=== PATIENT | female | born 1965 | race Caucasian/White ===

== ENCOUNTER → 2016-05-31 | Outpatient (CLI) | payer OTHER ==
--- NOTE | 2016-06-01 10:06 | MM ---
Reason for exam: screening (asymptomatic). Last mammogram was performed 2 years and 4 months ago. History: Taking hormonal contraceptives for 10 years beginning at age 33. Physical Findings: A clinical breast exam by your physician is recommended on an annual basis and results should be correlated with mammographic findings. MG Screening Mammo w CAD Bilateral CC and MLO view(s) were taken. Prior study comparison: January 20, 2014, bilateral MG screening mammo w CAD. December 10, 2012, bilateral digital screening mammo w/CAD. There are scattered fibroglandular densities. Finding: There are grouped/clustered calcifications in both breasts. Increase in number of calcifications since January 20, 2014 and December 10, 2012. ASSESSMENT: Incomplete: need additional imaging evaluation, BI-RAD 0 RECOMMENDATION: Special view mammogram of the left breast. [facility] will attempt to contact patient to return for supplemental views.
== END | disposition home or self-care (01) ==
LOC: RADMAMWWP 10:58
PROVIDERS: ATTEND Obstetrics & Gynecology
DX: Z12.31 Encounter for screening mammogram for malignant neoplasm of breast (principal)

== ENCOUNTER → 2016-06-05 | Outpatient (CLI) | payer OTHER ==
--- NOTE | 2016-06-05 14:53 | MM ---
Reason for exam: additional evaluation requested from abnormal screening. Last mammogram was performed less than 1 month ago. History: Taking hormonal contraceptives for 10 years beginning at age 33. Physical Findings: Nurse did not find any significant physical abnormalities on exam. MG Work Up Mamm w CAD LT ML, CC with magnification, and ML with magnification view(s) were taken of the left breast. Prior study comparison: January 20, 2014, bilateral MG screening mammo w CAD. Finding: There are typically benign diffuse/scattered calcifications in the subareolar position of the left breast. These results were verbally communicated with the patient and result sheet given to the patient on 06/05/16. ASSESSMENT: Probably benign, BI-RAD 3 RECOMMENDATION: Follow-up diagnostic mammogram of the left breast in 6 months.
== END | disposition home or self-care (01) ==
LOC: RADMAMWWP 13:53
PROVIDERS: ATTEND Obstetrics & Gynecology
DX: R92.8 Other abnormal and inconclusive findings on diagnostic imaging of breast (principal)

== ENCOUNTER → 2016-12-12 | Outpatient (CLI) | payer OTHER ==
--- NOTE | 2016-12-12 14:14 | MM ---
Reason for exam: follow-up at short interval from prior study. Last mammogram was performed 6 months ago. History: Taking hormonal contraceptives for 10 years beginning at age 33. Physical Findings: Nurse did not find any significant physical abnormalities on exam. MG 3D Diag Mammo W/Cad LT CC, MLO, and spot compression MLO view(s) were taken of the left breast. Prior study comparison: June 05, 2016, left breast MG work up mamm w CAD LT. May 31, 2016, bilateral MG screening mammo w CAD. There are scattered fibroglandular densities. Finding: There are typically benign round calcifications in the left breast. There is no discrete abnormality persists on today's study. These results were verbally communicated with the patient and result sheet given to the patient on 12/12/16. ASSESSMENT: Benign, BI-RAD 2 RECOMMENDATION: Return to routine screening mammogram schedule for both breasts. Back on schedule.
== END ==
LOC: RADMAMWWP 13:12
PROVIDERS: ATTEND Obstetrics & Gynecology
DX: R92.8 Other abnormal and inconclusive findings on diagnostic imaging of breast (principal)
CPT/HCPCS: G0206; G0279

== ENCOUNTER → 2017-06-03 | Outpatient (CLI) | payer OTHER ==
--- NOTE | 2017-06-04 13:51 | MM ---
Reason for exam: screening (asymptomatic). Last mammogram was performed 6 months ago. History: Taking hormonal contraceptives for 10 years beginning at age 33. Physical Findings: A clinical breast exam by your physician is recommended on an annual basis and results should be correlated with mammographic findings. MG 3D Screening Mammo W/Cad Bilateral CC and MLO view(s) were taken. Prior study comparison: December 12, 2016, left breast MG 3d diag mammo w/cad LT. June 05, 2016, left breast MG work up mamm w CAD LT. There are scattered fibroglandular densities. Finding: There are typically benign round calcifications in both breasts. There is no discrete abnormality. ASSESSMENT: Benign, BI-RAD 2 RECOMMENDATION: Routine screening mammogram of both breasts in 1 year.
== END | disposition home or self-care (01) ==
LOC: RADMAMWWP 07:55
PROVIDERS: ATTEND Obstetrics & Gynecology
DX: Z12.31 Encounter for screening mammogram for malignant neoplasm of breast (principal)
CPT/HCPCS: 77063; 77067

== ENCOUNTER → 2018-07-15 | Outpatient (CLI) | payer OTHER ==
--- NOTE | 2018-07-16 12:25 | MM ---
Reason for exam: screening (asymptomatic). Last mammogram was performed 1 year and 1 month ago. History: Took hormonal contraceptives for 10 years beginning at age 33. Physical Findings: A clinical breast exam by your physician is recommended on an annual basis and results should be correlated with mammographic findings. MG 3D Screening Mammo W/Cad Bilateral CC and MLO view(s) were taken. Prior study comparison: June 03, 2017, bilateral MG 3d screening mammo w/cad. December 12, 2016, left breast MG 3d diag mammo w/cad LT. The breast tissue is heterogeneously dense. This may lower the sensitivity of mammography. Stable benign calcifications. There is no discrete abnormality. No significant changes when compared with prior studies. ASSESSMENT: Benign, BI-RAD 2 RECOMMENDATION: Routine screening mammogram of both breasts in 1 year.
== END ==
LOC: RADMAMWWP 13:46
PROVIDERS: ATTEND Obstetrics & Gynecology
DX: Z12.31 Encounter for screening mammogram for malignant neoplasm of breast (principal)
CPT/HCPCS: 77063; 77067

== ENCOUNTER → 2019-09-07 | Outpatient (CLI) | payer OTHER ==
--- NOTE | 2019-09-08 09:14 | MM ---
Reason for exam: screening (asymptomatic). Last mammogram was performed 1 year and 2 months ago. History: Took hormonal contraceptives for 10 years beginning at age 33. Physical Findings: A clinical breast exam by your physician is recommended on an annual basis and results should be correlated with mammographic findings. MG 3D Screening Mammo W/Cad Bilateral CC and MLO view(s) were taken. Prior study comparison: July 15, 2018, bilateral MG 3d screening mammo w/cad. June 03, 2017, bilateral MG 3d screening mammo w/cad. The breast tissue is heterogeneously dense. This may lower the sensitivity of mammography. There is no discrete abnormality. No significant changes when compared with prior studies. ASSESSMENT: Negative, BI-RAD 1 RECOMMENDATION: Routine screening mammogram of both breasts in 1 year.
== END | disposition home or self-care (01) ==
LOC: RADMAMWWP 15:22
PROVIDERS: ATTEND Obstetrics & Gynecology
DX: Z12.31 Encounter for screening mammogram for malignant neoplasm of breast (principal)
CPT/HCPCS: 77063; 77067

== ENCOUNTER → 2019-09-08 | Outpatient (CLI) | payer OTHER ==
--- NOTE | 2019-09-09 17:21 | MR ---
EXAMINATION TYPE: MR knee LT wo con DATE OF EXAM: 09/08/2019 COMPARISON: NONE HISTORY: Pain in left knee per order. Pain and swelling with locking for 2 to 3 years with history of prior surgery per patient. TECHNIQUE: Multiplanar, multisequence images of the knee is performed without IV contrast. FINDINGS: MEDIAL MENISCUS: Medial extrusion medial meniscus. Anterior horn is intact without tear. Slightly heather ncated posterior horn with increased signal sagittal image 28. LATERAL MENISCUS: Anterior and posterior horns are intact without tear. CRUCIATE LIGAMENTS: The anterior and posterior cruciate ligaments are intact and unremarkable. COLLATERAL LIGAMENTS: The medial collateral ligament and lateral collateral ligament complex are inta ct and unremarkable. EXTENSOR MECHANISM: Visualized quadriceps and patellar tendons are intact. EFFUSION: There is moderate size suprapatellar joint effusion with suggestion of synovitis. POPLITEAL CYST: No popliteal/sifuentes cyst. TRICOMPARTMENT SPACES: Moderate to severe tricompartmental joint space narrowing and spurring. CARTILAGE: Some chondromalacia patella with fissuring of cartilage along the posterior patellar pole. Full-thickness cartilaginous loss medial tibiofemoral compartment. BONE MARROW SIGNAL: There is a heterogeneous diminished T1 and increased T2 signal medial tibial femo ral compartment at sites of full thickness cartilaginous loss. OTHER: No additional significant abnormality is appreciated. IMPRESSION: 1. Underlying fairly advanced tricompartment degenerative changes as detailed above somewhat pronounc ed for patient's and chronologic age. 2. Moderate suprapatellar joint effusion with suggestion of synovitis. 3. Tear versus postsurgical change posterior horn of medial meniscus, correlate clinically.
== END | disposition home or self-care (01) ==
LOC: RADMRIMAIN 16:00
PROVIDERS: ATTEND Family Medicine
DX: M17.12 Unilateral primary osteoarthritis, left knee (principal); M25.462 Effusion, left knee

== ENCOUNTER 2019-10-06 06:51 | Day surgery (SDC) | payer OTHER ==
[2019-09-16 16:03] VITALS: BMI 36.6
[~2019-10-06 06:51] MED LIST: LACTATED RINGERS 1,000 ML IV SCH; LIDOCAINE 1% (10MG/ML) FOR IV START INTRADERMA PRN
[2019-10-06 07:12] VITALS: TEMP 97
[2019-10-06 07:19] LABS: Glucose,Whole Blood 148 mg/dL (75-99)
[2019-10-06] MEDS ORDERED: MIDAZOLAM 2 MG/2 ML VIAL ONE (07:29)
[2019-10-06] MEDS ORDERED: LIDOCAINE 1% INJ 10MG/ML (20 ML MDV) ONE (07:29)
[2019-10-06] MEDS ORDERED: PROPOFOL 10 MG/ML 20 ML VIAL IV ONE (07:29)
--- NOTE | 2019-10-06 08:18 | P.PCN ---
Date of Procedure: 10/06/19 Description of Procedure: BRIEF HISTORY: Patient is a 54-year-old female presenting for outpatient colonoscopy for screening for malignant neoplasm of the colon. No prior colonoscopy. No family history of colon cancer. No change in bowel habits, blood per rectum or abdominal pain. PROCEDURE PERFORMED: Colonoscopy with polypectomy. PREOPERATIVE DIAGNOSIS: Screening for malignant neoplasm of the colon, no prior colonoscopy. ESTIMATED BLOOD LOSS: Minimal. IV sedation per Anesthesia. PROCEDURE: After informed consent was obtained, the patient, was brought into the endoscopy unit. IV sedation was administered by Anesthesia under continuous monitoring. Digital rectal examination was normal. Initially the Olympus CF-190 flexible video colonoscope was then inserted in the rectum, gradually advanced into the cecum without any difficulty. Careful examination was performed as the scope was gradually being withdrawn. Ileocecal valve and the appendiceal orifice were visualized and appeared normal. Prep was excellent. Mucosa of the cecum, ascending colon, transverse colon, descending colon, sigmoid colon, and rectum appeared normal. Diminutive polyps measuring 1-2 mm in size removed with cold forcep polypectomy, one from the transverse colon, one from the hepatic flexure, one from the descending colon, and 2 from the sigmoid colon. Flat cecal polyp measuring 9 mm in size removed with cold snare polypectomy. Flat ascending colon polyp measuring 10 mm in size removed from the ascending colon with cold snare polypectomy. Retroflexion was performed in the rectum and no lesions were seen. The patient tolerated the procedure well. IMPRESSION: 5 diminutive polyps removed with cold forcep polypectomy from the transverse colon, hepatic flexure, descending colon and sigmoid colon. 9 mm cecal polyp removed with cold snare polypectomy. 10 mm ascending polyp removed with cold snare polypectomy. RECOMMENDATIONS: Findings of this examination were discussed with the patient. Okay to resume diet. Okay to resume medications. await pathology from polypectomies. Recommend repeat colonoscopy in 3 years for high-risk colon polyps pending pathology from polypectomies.
[2019-10-06 08:35] VITALS: BP 127/84; PULSE 53; RESP 16
== END 2019-10-06 09:02 | disposition home or self-care (01) ==
LOC: ORWHC2ENDO 06:51
PROVIDERS: ATTEND Internal Medicine
DX: Z12.11 Encounter for screening for malignant neoplasm of colon (principal); D12.0 Benign neoplasm of cecum; D12.2 Benign neoplasm of ascending colon; D12.3 Benign neoplasm of transverse colon; K63.5 Polyp of colon; I10 Essential (primary) hypertension; E11.9 Type 2 diabetes mellitus without complications; M19.90 Unspecified osteoarthritis, unspecified site; F17.200 Nicotine dependence, unspecified, uncomplicated; Z91.040 Latex allergy status; Z79.84 Long term (current) use of oral hypoglycemic drugs; Z79.3 Long term (current) use of hormonal contraceptives; Z79.899 Other long term (current) drug therapy; Z98.890 Other specified postprocedural states
CPT/HCPCS: 45380; 45385; 81025; 88305; J2250; J2001; J2704

== ENCOUNTER → 2019-12-24 | Outpatient (CLI) | payer OTHER ==
[2019-12-24 15:36] LABS: HCT 41.1 % (34.0-46.0); HGB 13.5 gm/dL (11.4-16.0); MCH 32.8 pg (25.0-35.0); MCHC 32.8 g/dL (31.0-37.0); Mean Platelet Volume 9.4; Platelet Count 158 k/uL (150-450); RBC 4.11 m/uL (3.80-5.40); RDW 13.4 % (11.5-15.5); WBC 9.2 k/uL (3.8-10.6)
[2019-12-24 15:37] LABS: Appearance,Urine Clear (Clear); Bilirubin,Urine Negative (Negative); Blood,Urine Negative (Negative); Color,Urine Light Yellow; Glucose,Urine (UA) 4+ (Negative); Ketones,Urine Negative (Negative); Leukocyte Esterase,Urine Negative (Negative); Nitrite,Urine Negative (Negative); Protein,Urine Negative (Negative); Specific Gravity,Urine 1.025 (1.001-1.035); Urobilinogen,Urine <2.0 mg/dL (<2.0)
[2019-12-24 15:43] LABS: ALT 12 U/L (4-34); AST 20 U/L (14-36); African American GFR (CKD) >90 (>60 ml/min/1.73 sqM); Alkaline Phosphatase 123 U/L (38-126); Anion Gap 8 mmol/L; Blood Urea Nitrogen 21 mg/dL (7-17); Calcium 9.5 mg/dL (8.4-10.2); Carbon Dioxide 29 mmol/L (22-30); Chloride 100 mmol/L (98-107); Glucose 113 mg/dL (74-99); Non-African American GFR(CKD) 82 (>60 ml/min/1.73 sqM); Potassium 4.6 mmol/L (3.5-5.1); Sodium 137 mmol/L (137-145); Total Bilirubin 0.4 mg/dL (0.2-1.3); Total Protein 6.8 g/dL (6.3-8.2)
[2019-12-24 16:50] LABS: Partial Thromboplastin Time 24.9 sec (22.0-30.0)
== END | disposition home or self-care (01) ==
LOC: LABPAT 13:44
PROVIDERS: ATTEND Orthopaedic Surgery
DX: Z01.818 Encounter for other preprocedural examination (principal); Z01.812 Encounter for preprocedural laboratory examination; M17.12 Unilateral primary osteoarthritis, left knee
CPT/HCPCS: 80053; 81003; 85027; 85610; 85730; 87070

== ENCOUNTER 2020-01-05 09:46 | Day surgery (SDC) | payer OTHER ==
[2020-01-01 09:33] VITALS: BMI 36.3
[~2020-01-05 09:46] MED LIST changes: +ACETAMINOPHEN TAB 500 MG TAB PO ONE; +DEXAMETHASONE SOD PHOSPHATE 10 MG/ML 1 ML VIAL IV ONE; +GABAPENTIN 300 MG CAP PO ONE; +HYDROmorphone 0.5 MG/0.5 ML SYRINGE IVP PRN; -LACTATED RINGERS 1,000 ML IV SCH; +MELOXICAM 7.5 MG TAB PO ONE; +MIDAZOLAM 2 MG/2 ML VIAL IV PRN; +ONDANSETRON 4 MG/2 ML VIAL IVP ONE; +TRANEXAMIC ACID 1,000 MG in SODIUM CHLORIDE 0.9% 100 ML IVPB ONE
[2020-01-05 10:30] LABS: Glucose,Whole Blood 142 mg/dL (75-99)
[2020-01-05] MEDS: LACTATED RINGERS 1,000 ML IV SCH (10:52)
[2020-01-05] MEDS ORDERED: fentaNYL (PF) 50 MCG/ML 2 ML AMP IV ONE (10:59)
[2020-01-05] MEDS ORDERED: MIDAZOLAM 2 MG/2 ML VIAL ONE (11:13)
[2020-01-05] MEDS ORDERED: fentaNYL (PF) 50 MCG/ML 2 ML AMP ONE (11:13)
[2020-01-05] MEDS ORDERED: TRANEXAMIC ACID 1,000 MG/10 ML VIAL ONE (11:13)
[2020-01-05] MEDS ORDERED: PROPOFOL 10 MG/ML 20 ML VIAL IV ONE (11:13)
[2020-01-05] MEDS ORDERED: SODIUM CHLORIDE 0.9% 100 ML BAG ONE (11:13)
[2020-01-05] MEDS ORDERED: diphenhydrAMINE 50 MG/ML 1 ML VIAL ONE (11:13)
[2020-01-05] MEDS ORDERED: ceFAZolin 3,000 MG in SODIUM CHLORIDE 0.9% IRRIGATIO 3,000 ML IRRIGATION ONE (11:18)
[2020-01-05] MEDS ORDERED: diazePAM 5 MG TAB PO PRN (11:21)
[2020-01-05] MEDS ORDERED: NALOXONE 0.4 MG/ML 1 ML VIAL IV PRN (11:21)
[2020-01-05] MEDS ORDERED: MAGNESIUM HYDROXIDE 2,400 MG/10 ML CUP PO PRN (11:21)
[2020-01-05] MEDS ORDERED: NA PHOS,M-B/NA PHOS,DI-BA 133 ML ENEMA RECTAL PRN (11:21)
[2020-01-05] MEDS ORDERED: ONDANSETRON 4 MG/2 ML VIAL IVP PRN (11:21)
[2020-01-05] MEDS ORDERED: HYDROmorphone 0.5 MG/0.5 ML SYRINGE IVP PRN ×2 (11:21)
[2020-01-05] MEDS ORDERED: HYDROcodone/APAP 5-325MG 1 EACH TAB PO PRN (11:21)
[2020-01-05] MEDS ORDERED: hydrOXYzine pamoate 25 MG CAP PO PRN (11:21)
[2020-01-05] MEDS ORDERED: bisacodyL 10 MG SUPP RECTAL PRN (11:21)
[2020-01-05] MEDS ORDERED: HYDROmorphone 1 MG/ML 1 ML SYRINGE IVP PRN (11:21)
[2020-01-05] MEDS: ROPIVACAINE 246.25 MG, EPINEPHrine 0.5 MG, KETOROLAC 30 MG, cloNIDine HCL/PF 80 MCG, WA... MISCELLANE ONE ×10 (11:39→12:23)
[2020-01-05] MEDS ORDERED: ROPIVACAINE 0.2%-NS ON-Q PUMP 1,090 MG, EMPTY PAIN BALL 1 EACH MISCELLANE PRN (11:57)
--- NOTE | 2020-01-05 11:57 | P.ANPRN ---
Procedure Note - Anesthesia - Nerve Block Performed Left Adductor Canal Infusion Time Out Performed: Yes (1056) Date of Procedure: 01/05/20 Procedure Start Time: 10:57 Procedure Stop Time: 11:10 Location of Patient: PreOp Indication: Acute Post-Operative Pain, Analgesia, Requested by Surgeon Specifically requested for management of pain by : Rick Devries Sedation Type: Sedate with meaningful contact maintained Preparation: Sterile Prep, Sterile Dressing Position: Supine Catheter: Indwelling Needle Types: Dayna Needle Gauge: 18 Ultrasound used to visualize needle placement: Yes Ultrasound used to observe medication spread: Yes Injectate: 0.5% Ropivacaine (see comment for volume) (20 mL) Blood Aspirated: No Pain Paresthesia on Injection Noted: No Resistance on Injection: Normal Image Stored and Saved: Yes Events: Uneventful and Well Tolerated
[2020-01-05] MEDS ORDERED: LACTATED RINGERS 1,000 ML IV ONE (12:22)
--- NOTE | 2020-01-05 12:29 | P.OP ---
Date of Procedure: 01/05/20 Preoperative Diagnosis: severe osteoarthritis left knee Postoperative Diagnosis: severe osteoarthritis left knee Procedure(s) Performed: left total knee arthroplasty utilizing [employer] patient specific guides Implants: Matt [employer]hew Cruciate Retaining Journey II CR Oxinium Femoral Component size 6, left Matt [employer]hew Journey Nonporous Tibial Baseplate size 5, left [employer]hew Journey II Deep Dished, XLPE Articular Insert, 9 mm, size 5-6 Matt [employer] Nephew Parul II Resurfacing Patellar Component, Oval, 29 mm All components were cemented using Palacose R bone cement. [employer] patient specific guides The articulation is Oxinium on polyethylene. Anesthesia: spinal Surgeon: Rick Devries Molding Associate #1: Mery Sarmiento Estimated Blood Loss (ml): 25 Pathology: other (bone and cartilage) Condition: stable Disposition: PACU Indications for Procedure: After failure of conservative treatment we discussed the surgical and nonsurgical treatment options at length. Patient wishes to proceed with a total knee arthroplasty. Complications specific to this procedure were discussed at length, including but not limited to infection, bleeding, stiffness, and nerve injury. Covid-19 was also discussed at length with the patient, and they are aware of the current policies and procedures. The patient was given the option of delaying surgery, but they elect to proceed knowing these risks. Patient is aware of all these complications and informed consent was obtained Operative Findings: the operative findings are consistent with severe osteoarthritis of the left knee Description of Procedure: Patient was seen in the preoperative area consent was reviewed and operative site was marked with a skin marker. An adductor canal pain catheter was placed by anesthesia in the preoperative area. Patient was then brought to the operating room and given preoperative antibiotics intravenously. A spinal anesthetic was administered by the anesthesia department. A tourniquet was placed on the upper thigh and the lower extremity was prepped and draped in usual sterile fashion. A gram of transexamic acid was given. A universal timeout was then performed which confirmed the patient's name, surgical site, ALLERGIES, and consent. The lower extremity was then exsanguinated and tourniquet was inflated to 250 mmHg. A standard and anterior midline approach to the knee was performed. The skin and subcutaneous tissue was dissected down to the patellar tendon. A medial parapatellar arthrotomy was then performed. The knee was then extended, the patellar was everted, and the knee was again flexed. Anterior horns of both menisci were excised, and a release was performed to the posterior medial aspect of the knee. On gross visual inspection, there was complete loss of articular cartilage in the medial and patellofemoral joint spaces. There was also significant cartilage damage in the lateral compartment. There were multiple periarticular osteophytes. The patient specific guide was placed on the distal femur, and pinned in place. Using the patient specific guide, the distal femoral cut was performed. The cutting block was then removed and the cut was checked for flatness. The appropriate 5-in-1 cutting block was then pinned in place through the holes that were drilled through the patient specific guide. The anterior condyles were cut without notching. The posterior and chamfer cuts were performed while protecting the collateral ligaments. The cutting block was then removed. Attention was then directed to the tibia. The remaining ACL was removed with a Ronguer, and the tibia was then gently subluxed forward with a large bent knee retractor. Any remaining menisci was excised. The posterior lateral corner was cauterized in order to cauterize the lateral geniculate artery. The patient specific guide for the tibia was then placed and was held in place with pins. Pinholes were then placed for rotation of the tibial component as well. Proximal tibia was then cut and sized. Next trials were then placed with the appropriate-sized insert. The knee was able to fully extend and flex to 130 and was stable throughout all range of motion. The knee was then extended, patella everted. Patella was then measured, and then using an osteotomy guide, the patella was cut at the appropriate level. The patella was then measured and drilled and the patella trial was then placed. The knee was then taken through range of motion with the patella trial and the patella tracked normally. The knee was then extended patella trial was then removed and the patella was everted. Knee was then flexed and lug holes were drilled through the femoral trial and the femoral trial was then removed. The tibial was then exposed, and the tibial broach guide was then pinned in place after it was set for the appropriate rotation to allow for the most coverage without overhang. The tibia was then reamed and broached. The cut surfaces of bone were then irrigated with pulsatile lavage. The posterior structures were injected with the ropivacaine solution. The knee was also irrigated with Irrisept solution. The components were then opened, the cement was mixed, and the components were then cemented in place. The cement was allowed to harden with the knee in full extension. While the cement was hardening, the remaining soft tissues were then injected with a ropivacaine solution, which consisted of 246.25 mg of ropivacaine, 0.5 mg of epinephrine, 30 mg of Toradol, 80 g of clonidine, and 48.45 mL of sterile water, for a total of 100 mL of fluid injected. After the cemented hardened. The tourniquet was released, and hemostasis was obtained. A second gram of transexamic acid was given. The knee was again irrigated. The knee was again taken through range of motion and found to be stable throughout all range of motion of 0-130, and the patella tracked normally. The fascia was then closed with #2 strata fix suture. The subcutaneous tissue was closed with 3-0 Vicryl and 3-0 strata fix. Dermabond glue was used for the skin and placed with the knee in flexion. The patient was placed in a sterile silver dressing. Patient was then transferred to recovery room in stable condition. The assistant construction superintendent DONYA Miramontes was required due the complexity surgery and the need for a skilled surgical aide. She assisted in positioning, draping, retraction, and closure of the wound.
[2020-01-05 13:22] LABS: Glucose,Whole Blood 147 mg/dL (75-99)
--- NOTE | 2020-01-05 13:44 | XR ---
EXAMINATION TYPE: XR knee limited LT DATE OF EXAM: 01/05/2020 CLINICAL HISTORY: Left knee pain and arthritis status post total knee replacement. TECHNIQUE: Portable AP and crosstable lateral views of the left knee are obtained immediately postop eratively. COMPARISON: None FINDINGS: Metallic hardware from total left knee arthroplasty is seen and appears satisfactory in al ignment and position. There is evidence of recent surgery with diffuse subcutaneous gas and soft tis reynold swelling noted. IMPRESSION: METALLIC HARDWARE FROM TOTAL LEFT KNEE ARTHROPLASTY IS SATISFACTORY IN ALIGNMENT.
[2020-01-05] MEDS ORDERED: diphenhydrAMINE 50 MG/ML 1 ML VIAL IVP ONE (15:16)
[2020-01-05 15:53] VITALS: RESP 18
[2020-01-05] MEDS: SODIUM CHLORIDE 0.9% 1,000 ML IV SCH (16:32)
--- NOTE | 2020-01-05 17:26 | P.CONS ---
History of Present Illness - Reason for Consult Hypertension, type 2 diabetes mellitus - History of Present Illness Patient is a pleasant 54-year-old the female was admitted for left knee arthroplasty underwent surgery patient denied any pain did pass gas. Patient is diabetic does have high blood pressure. Patient denied any fever chills nausea vomiting abdominal pain dysuria. Patient doesn't have a Cote catheter At this time. Doesn't have surgical drainage at this time Review of Systems REVIEW OF SYSTEMS: CONSTITUTIONAL: No fever, no malaise, no fatigue. HEENT: No recent visual problems or hearing problems. Denied any sore throat. CARDIOVASCULAR: No chest pain, orthopnea, PND, no palpitations, no syncope. PULMONARY: No shortness of breath, no cough, no hemoptysis. GASTROINTESTINAL: No diarrhea, no nausea, no vomiting, no abdominal pain. NEUROLOGICAL: No headaches, no weakness, no numbness. HEMATOLOGICAL: Denies any bleeding or petechiae. GENITOURINARY: Denies any burning micturition, frequency, or urgency. MUSCULOSKELETAL/RHEUMATOLOGICAL: Denies any joint pain, swelling, or any muscle pain. ENDOCRINE: Denies any polyuria or polydipsia. The rest of the 14-point review of systems is negative. Past Medical History Past Medical History: Diabetes Mellitus, Hypertension, Osteoarthritis (OA) Additional Past Medical History / Comment(s): Lt knee pain; steroid injection August 2019 History of Any Multi-Drug Resistant Organisms: None Reported Past Surgical History: Orthopedic Surgery Additional Past Surgical History / Comment(s): arthroscopy lt knee. COLONOSCOPY Past Anesthesia/Blood Transfusion Reactions: No Reported Reaction Past Psychological History: No Psychological Hx Reported Smoking Status: Current every day smoker Past Alcohol Use History: Occasional Additional Past Alcohol Use History / Comment(s): trying to quit smoking again, started at age 19 on/off, up to 1 pack q2 weeks Past Drug Use History: None Reported - Past Family History Mother Family Medical History: No Reported History Father Family Medical History: Deep Vein Thrombosis (DVT) Medications and Allergies Home Medications Medication Instructions Recorded Confirmed Type Empagliflozin [Jardiance] 10 mg PO DAILY 09/16/19 01/05/20 History Norgestimate-Ethinyl Estradiol 1 each PO QAM 09/16/19 01/05/20 History [Ortho Tri-Cyclen 28 Tablet] Olmesartan/Hydrochlorothiazide 1 each PO DAILY 09/16/19 01/05/20 History [Benicar Hct 20-12.5 mg Tablet] atenoloL [Tenormin] 25 mg PO BID 09/16/19 01/05/20 History metFORMIN HCL 1,000 mg PO BID 09/16/19 01/05/20 History Cetirizine HCl [Zyrtec] 10 mg PO DAILY 10/01/19 01/05/20 History Cholecalciferol [Vitamin D3 (25 5,000 unit PO DAILY 10/01/19 01/05/20 History Mcg = 1000 Iu)] Cranberry Fruit Extract [Cranberry] 4,200 mg PO DAILY 10/01/19 01/05/20 History Cyanocobalamin (Vitamin B-12) 1,000 mcg PO DAILY 10/01/19 01/05/20 History [Vitamin B-12] Vitamin C/Biotin [Hair, Skin and 1 tab PO BID 10/01/19 01/05/20 History Nails] Allergies Allergy/AdvReac Type Severity Reaction Status Date / Time latex Allergy Rash/Hives Verified 01/05/20 10:19 Physical Exam Vitals: Vital Signs Temp Pulse Pulse Resp BP BP Pulse Ox 01/05/20 15:45 97.5 F L 57 L 18 143/81 97 01/05/20 15:00 72 16 111/59 93 L 01/05/20 14:45 62 16 113/56 97 01/05/20 14:30 71 16 108/58 98 01/05/20 14:15 58 L 16 108/56 97 01/05/20 14:00 61 16 120/57 98 01/05/20 13:45 65 16 117/55 98 01/05/20 13:30 59 L 16 116/57 97 01/05/20 13:15 56 L 16 122/62 99 01/05/20 12:59 98.4 F 58 L 12 125/62 99 01/05/20 11:00 56 L 16 115/55 98 01/05/20 10:13 97.9 F 62 16 102/50 99 Intake and Output 01/05/20 01/05/20 01/05/20 06:59 14:59 22:59 Intake Total 1251 200 Output Total 25 Balance 1226 200 Intake: IV 1251 200 Output: Estimated Blood Loss 25 Other: Weight 105.7 kg 105.7 kg PHYSICAL EXAMINATION: GENERAL: The patient is alert and oriented x3, not in any acute distress. Well developed, well nourished. HEENT: Pupils are round and equally reacting to light. EOMI. No scleral icterus. No conjunctival pallor. Normocephalic, atraumatic. No pharyngeal erythema. No thyromegaly. CARDIOVASCULAR: S1 and S2 present. No murmurs, rubs, or gallops. PULMONARY: Chest is clear to auscultation, no wheezing or crackles. ABDOMEN: Soft, nontender, nondistended, normoactive bowel sounds. No palpable organomegaly. MUSCULOSKELETAL: Left knee is postsurgical leave packed and wrapped with Eligio bandage EXTREMITIES: No cyanosis, clubbing, or pedal edema. NEUROLOGICAL: Gross neurological examination did not reveal any focal deficits. SKIN: No rashes. Results Labs: Abnormal Lab Results - Last 24 Hours (Table) 01/05/20 01/05/20 Range/Units 10:29 13:20 POC Glucose (mg/dL) 142 H 147 H (75-99) mg/dL Assessment and Plan Plan: -Type 2 diabetes mellitus: Patient can be resumed on insulin hold off on oral hypoglycemic agent patient will be ordered on sliding scale insulin. -Hypertension: Beta raymundo will be resumed to prevent perioperative hypotension on hold off on ELIGIO inhibitor and hydrochlorothiazide combination. -Left knee arthroplasty: Pain management as per primary service and patient is on aspirin 325 mg twice a day for DVT prophylaxis. -Nicotine use: Counseling was provided
[2020-01-05] MEDS: INSULIN ASPART (NovoLOG) 100 UNIT/ML VIAL SQ SCH ×2 (17:54→21:30)
[2020-01-05] MEDS: HYDROcodone/APAP 5-325MG 1 EACH TAB PO PRN (18:20)
[2020-01-05 20:32] LABS: Glucose,Whole Blood 231 mg/dL (75-99)
[2020-01-05] MEDS ORDERED: SENNOSIDES-DOCUSATE SODIUM 1 EACH TAB PO SCH (21:00)
[2020-01-05] MEDS: ASPIRIN 325 MG TAB PO SCH (21:30)
[2020-01-05] MEDS: atenoloL 25 MG TAB PO SCH (21:30)
[2020-01-06] MEDS: LACTATED RINGERS 1,000 ML IV SCH (02:04)
[2020-01-06] MEDS: SODIUM CHLORIDE 0.9% 1,000 ML IV SCH ×2 (02:07→07:18)
[2020-01-06] MEDS: HYDROcodone/APAP 5-325MG 1 EACH TAB PO PRN (02:35)
--- NOTE | 2020-01-06 06:03 | P.PN ---
Progress Note - Text Patient was seen at bedside at 0600 AM. Patient is postop day from left total knee replacement with adductor canal catheter placed for pain . Ropivacaine 0.2% infusion running at 8 ml per hour. VAS score is 5. Patient denies side effects. Lower extremity sensation and motor function is intact. Patient has ambulated. Dressing clean dry and intact over catheter site
[2020-01-06 06:46] LABS: Basophils % (A) 0 %; Eosinophils % (A) 0 %; HCT 35.4 % (34.0-46.0); HGB 11.6 gm/dL (11.4-16.0); Lymphocytes # (A) 2.1 k/uL (1.0-4.8); Lymphocytes % (A) 18 %; MCH 32.5 pg (25.0-35.0); MCHC 32.7 g/dL (31.0-37.0); MCV 99.5 fL (80.0-100.0); Mean Platelet Volume 8.6; Monocytes # (A) 0.4 k/uL (0-1.0); Monocytes % (A) 3 %; Neutrophils # (A) 8.7 k/uL (1.3-7.7); Neutrophils % (A) 77 %; Platelet Count 165 k/uL (150-450); RBC 3.56 m/uL (3.80-5.40); RDW 13.7 % (11.5-15.5); WBC 11.3 k/uL (3.8-10.6)
[2020-01-06 07:06] LABS: Glucose,Whole Blood 151 mg/dL (75-99)
[2020-01-06] MEDS: atenoloL 25 MG TAB PO SCH (07:24)
[2020-01-06] MEDS: ASPIRIN 325 MG TAB PO SCH (07:24)
[2020-01-06] MEDS: INSULIN ASPART (NovoLOG) 100 UNIT/ML VIAL SQ SCH ×2 (07:24→12:01)
[2020-01-06 08:18] VITALS: BP 100/58; PULSE 55; TEMP 97.6
[2020-01-06] MEDS ORDERED: HYDROcodone/APAP 7.5-325MG 1 EACH TAB PO PRN ×2 (08:26)
--- NOTE | 2020-01-06 08:32 | P.DS ---
Providers Expected date of discharge: 01/06/20 Attending physician: Rick Devries Consults: 01/05/20 11:21 Consult Physician Routine Consulting Provider: Eric Baugh Consult Reason/Comments: medical management Do you want consulting provider notified?: Yes Primary care physician: Christina Hidalgo - Discharge Diagnosis(es) (1) Osteoarthritis of left knee Current Visit: Yes Status: Acute (2) S/P total knee arthroplasty Current Visit: Yes Status: Acute Hospital Course: This is a 54-year-old female with known history of degenerative arthritis of the left knee. The patient presents for evaluation. After discussion and consideration patient elects to proceed with total knee arthroplasty. The patient is seen preoperatively by Dr. Devries and medically cleared for surgery by their primary care physician. Patient is admitted to [facility] on 01/05/2020 for total knee arthroplasty. The procedures performed without complication or sequelae. The patient is doing well postoperatively. Labs and vital signs are stable on day of discharge. On day of discharge patient's knee incision is healing well. There is minimal erythema. There is no drainage noted at this time. There is minimal soft tissue swelling to the knee. Patient has full foot and ankle motion without difficulty or pain. Calf is soft and nontender to palpation. Neurovascular status to the left lower extremity is intact. Patient is discharged home in go od condition. Opioid start talking form is reviewed and signed. Please see med rec for accurate list of home medications. Plan - Discharge Summary Discharge Rx Participant: Yes New Discharge Prescriptions: New Aspirin 325 mg PO BID #60 tab HYDROcodone/APAP 7.5-325MG [Ilfeld 7.5-325] 1 - 2 tab PO Q6H PRN #32 tab PRN Reason: Pain Sennosides [Senokot] 2 tab PO DAILY PRN #60 tablet PRN Reason: Constipation Continue Norgestimate-Ethinyl Estradiol [Ortho Tri-Cyclen 28 Tablet] 1 each PO QAM metFORMIN HCL 1,000 mg PO BID Empagliflozin [Jardiance] 10 mg PO DAILY Cranberry Fruit Extract [Cranberry] 4,200 mg PO DAILY Cetirizine HCl [Zyrtec] 10 mg PO DAILY Cyanocobalamin (Vitamin B-12) [Vitamin B-12] 1,000 mcg PO DAILY Cholecalciferol [Vitamin D3 (25 Mcg = 1000 Iu)] 5,000 unit PO DAILY Vitamin C/Biotin [Hair, Skin and Nails] 1 tab PO BID Olmesartan/Hydrochlorothiazide [Benicar Hct 20-12.5 mg Tablet] 1 each PO DAILY #0 atenoloL [Tenormin] 25 mg PO BID #0 Discharge Medication List Empagliflozin [Jardiance] 10 mg PO DAILY 09/16/19 [History] Norgestimate-Ethinyl Estradiol [Ortho Tri-Cyclen 28 Tablet] 1 each PO QAM 09/16/19 [History] metFORMIN HCL 1,000 mg PO BID 09/16/19 [History] Cetirizine HCl [Zyrtec] 10 mg PO DAILY 10/01/19 [History] Cholecalciferol [Vitamin D3 (25 Mcg = 1000 Iu)] 5,000 unit PO DAILY 10/01/19 [History] Cranberry Fruit Extract [Cranberry] 4,200 mg PO DAILY 10/01/19 [History] Cyanocobalamin (Vitamin B-12) [Vitamin B-12] 1,000 mcg PO DAILY 10/01/19 [History] Vitamin C/Biotin [Hair, Skin and Nails] 1 tab PO BID 10/01/19 [History] Aspirin 325 mg PO BID #60 tab 01/06/20 [Rx] HYDROcodone/APAP 7.5-325MG [Ilfeld 7.5-325] 1 - 2 tab PO Q6H PRN #32 tab 01/06/20 [Rx] Olmesartan/Hydrochlorothiazide [Benicar Hct 20-12.5 mg Tablet] 1 each PO DAILY #0 01/06/20 [Rx] Sennosides [Senokot] 2 tab PO DAILY PRN #60 tablet 01/06/20 [Rx] atenoloL [Tenormin] 25 mg PO BID #0 01/06/20 [Rx] Follow up Appointment(s)/Referral(s): Rick Devries DO [Doctor of Osteopathic Medicine] - 2 Weeks Activity/Diet/Wound Care/Special Instructions: Weightbearing as tolerated with a walker. CPM 5-6h daily. Leave dressing intact. May be removed by home care nurse or by patient in 10 days. May shower with dressing on. Recommend use of compression stockings daily until follow up to help prevent swelling and blood clots. May remove at night before sleeping. Please take aspirin 325mg twice daily for 30 days to prevent blood clots. Please follow up with [facility] and call with any questions or concerns, . Discharge Disposition: HOME WITH HOME HEALTH SERVICES
--- NOTE | 2020-01-06 08:38 | P.PN ---
Subjective Patient is admitted for left knee arthroplasty clinically doing well most probably will be discharged today and asked her to hold off on atenolol today and tomorrow and the NAAV inhibitor diuretic combination pill will be held until she is seen by PCP unless her blood pressure goes up very high. Her blood pressure is expected to be low for The 4 days patient to follow with PCP in about a week. Constitutional: Denied any fatigue denied any fever. Cardio vascular: denied any chest pain, palpitations Gastrointestinal denied any nausea vomiting Pulmonary: Denied any shortness of breath cough Neurologic denied any new focal deficits All inpatient medications were reviewed and appropriate changes in these medications as dictated in the interval history and assessment and plan. Objective - Vital Signs Vital signs: Vital Signs Temp 97.6 F 01/06/20 07:00 Pulse 55 L 01/06/20 07:00 Resp 18 01/06/20 07:09 BP 100/58 01/06/20 07:00 Pulse Ox 93 L 01/06/20 07:00 Intake & Output 01/05/20 01/06/20 01/06/20 18:59 06:59 18:59 Intake Total 1451 700 180 Output Total 25 Balance 1426 700 180 Weight 105.7 kg Intake: IV 1451 Intake, IV Titration 100 Amount Lactated Ringers 1,000 ml 100 @ 0 mls/hr IV .Docurated-Kirax ONE Rx#:[id number] Oral 600 180 Output: Estimated Blood Loss 25 Other: # Voids 1 - Exam PHYSICAL EXAMINATION: GENERAL: The patient is alert and oriented x3, not in any acute distress. Well developed, well nourished. HEENT: Pupils are round and equally reacting to light. EOMI. No scleral icterus. No conjunctival pallor. Normocephalic, atraumatic. No pharyngeal erythema. No thyromegaly. CARDIOVASCULAR: S1 and S2 present. No murmurs, rubs, or gallops. PULMONARY: Chest is clear to auscultation, no wheezing or crackles. ABDOMEN: Soft, nontender, nondistended, normoactive bowel sounds. No palpable organomegaly. MUSCULOSKELETAL: Deferred to orthopedic surgery EXTREMITIES: No cyanosis, clubbing, or pedal edema. NEUROLOGICAL: Gross neurological examination did not reveal any focal deficits. SKIN: No rashes. - Labs CBC & Chem 7: 01/06/20 06:29 Labs: Abnormal Lab Results - Last 24 Hours (Table) 01/05/20 01/05/20 01/05/20 Range/Units 10:29 13:20 20:31 WBC (3.8-10.6) k/uL RBC (3.80-5.40) m/uL Neutrophils # (1.3-7.7) k/uL POC Glucose (mg/dL) 142 H 147 H 231 H (75-99) mg/dL 01/06/20 01/06/20 Range/Units 06:29 07:05 WBC 11.3 H (3.8-10.6) k/uL RBC 3.56 L (3.80-5.40) m/uL Neutrophils # 8.7 H (1.3-7.7) k/uL POC Glucose (mg/dL) 151 H (75-99) mg/dL Assessment and Plan Plan: -Type 2 diabetes mellitus: Patient can be resumed on her home regimen -Hypertension: Discharge antihypertensive management as mentioned above -Left knee arthroplasty: Pain management as per primary service and patient is on aspirin 325 mg twice a day for DVT prophylaxis. Patient can be discharged from [facility]
[2020-01-06] MEDS ORDERED: Empagliflozin [Jardiance] PO SCH (09:00)
[2020-01-06] MEDS ORDERED: MELOXICAM 7.5 MG TAB PO SCH (09:00)
[2020-01-06] MEDS ORDERED: LORATADINE 10 MG TAB PO SCH (09:00)
[2020-01-06 11:45] LABS: Glucose,Whole Blood 204 mg/dL (75-99)
== END 2020-01-06 13:22 | disposition home health service (06) ==
LOC: OR 09:46 → 4SSUR 12:55 → OR 01-06 13:22
PROVIDERS: ATTEND Orthopaedic Surgery
DX: M17.12 Unilateral primary osteoarthritis, left knee (principal); I10 Essential (primary) hypertension; E11.9 Type 2 diabetes mellitus without complications; Z91.040 Latex allergy status; Z79.84 Long term (current) use of oral hypoglycemic drugs; Z79.899 Other long term (current) drug therapy; Z98.890 Other specified postprocedural states; F17.210 Nicotine dependence, cigarettes, uncomplicated; Z82.49 Family history of ischemic heart disease and other diseases of the circulatory system; Z97.3 Presence of spectacles and contact lenses; Z83.3 Family history of diabetes mellitus
CPT/HCPCS: 97116; 97110; 97161; 64448; 76942; 85025; 88300; 73560; 27447; C1713; C1776; J2250; J0171; J1200; J1100; J0690 ×3; J2405; J3010; J1885; J2795 ×2; J2704; J0735; J1170

== ENCOUNTER → 2020-09-14 | Outpatient (CLI) | payer OTHER ==
--- NOTE | 2020-09-16 14:08 | MM ---
Reason for exam: screening (asymptomatic). Last mammogram was performed 1 year ago. History: Took hormonal contraceptives for 10 years beginning at age 33. Physical Findings: A clinical breast exam by your physician is recommended on an annual basis and results should be correlated with mammographic findings. MG 3D Screening Mammo W/Cad Bilateral CC and MLO view(s) were taken. XCCL view(s) were taken of the left breast. Prior study comparison: September 07, 2019, bilateral MG 3d screening mammo w/cad. July 15, 2018, bilateral MG 3d screening mammo w/cad. The breast tissue is heterogeneously dense. This may lower the sensitivity of mammography. Right increased density subareolar MLO view. Benign appearing scattered calcifications. ASSESSMENT: Incomplete: need additional imaging evaluation, BI-RAD 0 RECOMMENDATION: Special view mammogram of the right breast. (increased density MLO) If lesion persists on supplemental views, image directed ultrasound is recommended. [facility] will attempt to contact patient to return for supplemental views and ultrasound if indicated.
== END | disposition home or self-care (01) ==
LOC: RADMAMWWP 15:24
PROVIDERS: ATTEND Obstetrics & Gynecology
DX: Z12.31 Encounter for screening mammogram for malignant neoplasm of breast (principal); Z79.3 Long term (current) use of hormonal contraceptives
CPT/HCPCS: 77063; 77067

== ENCOUNTER → 2020-09-22 | Outpatient (CLI) | payer OTHER | END | disposition home or self-care (01) ==

== ENCOUNTER → 2021-10-02 | Outpatient (CLI) | payer OTHER ==
--- NOTE | 2021-10-03 11:32 | MM ---
Reason for Exam: Screening (asymptomatic). Last mammogram was performed 1 year(s) and 1 month(s) ago. Patient History: Menarche at age 13. First Full-Term at age 20. Patient has history of breast feeding. Hormonal Contraceptives, starting at age 33 for 10 years. Sister (pretty) had breast cancer, right, age 54. Last menstrual period: 09/19/2021 Prior Study Comparison: 09/07/2019 Bilateral Screening Mammogram, [facility]. 09/14/2020 Bilateral Screening Mammogram, [facility]. 09/22/2020 Right Diagnostic Mammogram, [facility]. Tissue Density: The breast tissue is heterogeneously dense. This may lower the sensitivity of mammography. Findings: Analyzed By CAD. There is no suspicious group of microcalcifications or new suspicious mass in either breast. Benign-appearing calcifications within both breasts. No significant change from prior examination. Overall Assessment: Benign, BI-RAD 2 Management: Screening Mammogram of both breasts in 1 year. A clinical breast exam by your physician is recommended on an annual basis and results should be correlated with mammographic findings. Electronically signed and approved by: Linden Mead D.O.
== END | disposition home or self-care (01) ==
LOC: RADMAMWWP 13:31
PROVIDERS: ATTEND Obstetrics & Gynecology
DX: Z12.31 Encounter for screening mammogram for malignant neoplasm of breast (principal); Z80.3 Family history of malignant neoplasm of breast
CPT/HCPCS: 77063; 77067

== ENCOUNTER → 2022-12-05 | Outpatient (CLI) | payer OTHER ==
--- NOTE | 2022-12-06 09:59 | MM ---
Reason for Exam: Screening (asymptomatic). Last mammogram was performed 1 year(s) and 2 month(s) ago. Patient History: Menarche at age 13. First Full-Term at age 20. Postmenopausal. Patient has history of breast feeding. Hormonal Contraceptives, starting at age 33 for 10 years. Sister (pretty) had breast cancer, right, age 54. Risk Values: Danielle 5 year model risk: 1.6%. NCI Lifetime model risk: 10.2%. Prior Study Comparison: 09/14/2020 Bilateral Screening Mammogram, [facility]. 09/22/2020 Right Diagnostic Mammogram, [facility]. 10/02/2021 Bilateral MG 3D screening mammo w/cad, [facility]. Tissue Density: The breast tissue is heterogeneously dense. This may lower the sensitivity of mammography. Findings: Analyzed By CAD. There is no suspicious group of microcalcifications or new suspicious mass in either breast. Bilateral benign-appearing calcifications. No architectural distortion. Overall Assessment: Benign, BI-RAD 2 Management: Screening Mammogram of both breasts in 1 year. . Patient should continue monthly self-breast exams. A clinical breast exam by your physician is recommended on an annual basis. This exam should not preclude additional follow-up of suspicious palpable abnormalities. Note on Danielle scores and lifetime risk: 1. A Danielle score greater than 3% is considered moderate risk. If this is the case, consider specialist referral to assess eligibility for a risk reducing agent. 2. If overall lifetime risk for the development of breast cancer is 20% or higher, the patient may qualify for future screening with alternating mammogram and breast MRI. Electronically signed and approved by: Troy Mcintyre M.D. Radiologis
== END | disposition home or self-care (01) ==
LOC: RADMAMWWP 10:30
PROVIDERS: ATTEND Obstetrics & Gynecology
DX: Z12.31 Encounter for screening mammogram for malignant neoplasm of breast (principal); Z78.0 Asymptomatic menopausal state; Z80.3 Family history of malignant neoplasm of breast
CPT/HCPCS: 77063; 77067

== ENCOUNTER 2024-02-27 07:02 | Day surgery (SDC) | payer OTHER ==
[2024-02-25 11:27] VITALS: BMI 34.0
[2024-02-27 07:37] VITALS: TEMP 97.6
[2024-02-27] MEDS: LACTATED RINGERS 1,000 ML IV SCH (07:38)
[2024-02-27] MEDS: IV FLUID CONTINUATION 1,000 ML IV ONE ×2 (07:39→07:42)
[2024-02-27 07:42] LABS: Glucose,Whole Blood 124 mg/dL (70-110)
[2024-02-27] MEDS ORDERED: LIDOCAINE 1% INJ 10MG/ML (20 ML MDV) ONE (07:43)
[2024-02-27] MEDS ORDERED: PROPOFOL 10 MG/ML 20 ML VIAL IV ONE (07:43)
--- NOTE | 2024-02-27 08:06 | P.GSHP ---
History of Present Illness H&P Date: 02/27/24 Chief Complaint: History of colon polyps This a 58-year-old female who presents today for colonoscopy. Patient has previous history of colon polyps. Past Medical History Past Medical History: Diabetes Mellitus, Hypertension, Osteoarthritis (OA) Additional Past Medical History / Comment(s): Lt knee pain; steroid injection August 2019 History of Any Multi-Drug Resistant Organisms: None Reported Past Surgical History: Joint Replacement, Orthopedic Surgery Additional Past Surgical History / Comment(s): Left knee arthroscopy, left knee replacement. Past Anesthesia/Blood Transfusion Reactions: No Reported Reaction Smoking Status: Current every day smoker, Vaper - Past Family History Mother Family Medical History: No Reported History Father Family Medical History: Deep Vein Thrombosis (DVT) Sister(s) Family Medical History: Cancer Medications and Allergies Home Medications Medication Instructions Recorded Confirmed Type metFORMIN HCL [Glucophage] 1,000 mg PO BID 09/16/19 02/27/24 History Cholecalciferol [Vitamin D3 (25 5,000 unit PO DAILY 10/01/19 02/27/24 History Mcg = 1000 Iu)] Cranberry Fruit Extract [Cranberry] 4,200 mg PO DAILY 10/01/19 02/27/24 History atenoloL [Tenormin] 25 mg PO BID #0 01/06/20 02/27/24 Rx Biotin (Unknown Dose) 1 tab PO DAILY 02/25/24 02/27/24 History Bp Pill (Unknown Name/Dose) 1 tab PO DAILY 02/25/24 02/27/24 History L.acidoph,Paracasei, B.lactis 1 each PO DAILY 02/25/24 02/27/24 History [Probiotic] Loratadine [Claritin] 10 mg PO DAILY 02/25/24 02/27/24 History Semaglutide [Rybelsus] 7 mg PO QAM 02/25/24 02/27/24 History Vitamin E (Unknown Dose) 1 tab PO DAILY 02/25/24 02/27/24 History Olmesartan/Hydrochlorothiazide 1 each PO DAILY 02/27/24 02/27/24 History [Olmesartan-Hctz 20-12.5 mg Tab] Allergies Allergy/AdvReac Type Severity Reaction Status Date / Time latex Allergy Rash/Hives Verified 02/27/24 07:18 Surgical - Exam Vital Signs Temp Pulse Resp BP Pulse Ox 97.6 F 65 16 120/66 98 02/27/24 07:10 02/27/24 07:10 02/27/24 07:10 02/27/24 07:10 02/27/24 07:10 - General well developed, well nourished, no distress - Eyes PERRL - ENT normal pinna - Neck no masses - Respiratory normal expansion - Cardiovascular Rhythm: regular - Abdomen Abdomen: soft, non tender Results - Labs Abnormal Lab Results - Last 24 Hours (Table) 02/27/24 Range/Units 07:34 POC Glucose (mg/dL) 124 H (70-110) mg/dL Assessment and Plan Assessment: History of colon polyps. Will perform colonoscopy.
--- NOTE | 2024-02-27 08:07 | P.OP ---
Date of Procedure: 02/27/24 Preoperative Diagnosis: History colon polyps Postoperative Diagnosis: Left colon polyp Procedure(s) Performed: Colonoscopy Anesthesia: MAC Surgeon: Koko Beebe Pathology: other (Left colon polyp) Condition: stable Disposition: PACU Description of Procedure: The patient was placed on the endoscopy table in the lateral position. She received IV sedation. Digital rectal exams performed. This revealed no abnormalities. The flexible colonoscope was then placed patient anus and passed throughout the entire colon. The ileocecal valve was visualized. The cecum, ascending and transverse colon appeared normal. In the descending colon at approximately 42 cm richard. There was a small polyp seen. This removed with the snare. The sigmoid colon appeared normal. Scope back to the rectum this appeared normal. Scope withdrawn the patient.
[2024-02-27 08:10] VITALS: RESP 14
[2024-02-27 08:24] VITALS: BP 101/68; PULSE 55
== END 2024-02-27 08:45 | disposition home or self-care (01) ==
LOC: ORWHC2ENDO 07:02
PROVIDERS: ATTEND Surgery
DX: Z12.11 Encounter for screening for malignant neoplasm of colon (principal); D12.4 Benign neoplasm of descending colon; E11.9 Type 2 diabetes mellitus without complications; K21.9 Gastro-esophageal reflux disease without esophagitis; F17.290 Nicotine dependence, other tobacco product, uncomplicated; Z79.84 Long term (current) use of oral hypoglycemic drugs; Z79.899 Other long term (current) drug therapy; Z86.0100 Personal history of colon polyps, unspecified; Z91.040 Latex allergy status; Z96.652 Presence of left artificial knee joint
CPT/HCPCS: 88305; 45385; J2003; J2704

== ENCOUNTER → 2024-03-26 | Outpatient (CLI) | payer OTHER ==
--- NOTE | 2024-03-27 07:20 | MM ---
Reason for Exam: Screening (asymptomatic). Last mammogram was performed 1 year(s) and 4 month(s) ago. Patient History: Menarche at age 13. First Full-Term at age 20. Postmenopausal. Patient has history of breast feeding. Currently using Hormonal Contraceptives, beginning at age 33 for 10 years. Sister (pretty) had breast cancer, right, age 54. Risk Values: Danielle 5 year model risk: 1.6%. NCI Lifetime model risk: 10.0%. Prior Study Comparison: 09/22/2020 Right Diagnostic Mammogram, [facility]. 10/02/2021 Bilateral MG 3D screening mammo w/cad, [facility]. 12/05/2022 Bilateral MG 3D screening mammo w/cad, [facility]. Tissue Density: There are scattered areas of fibroglandular density. Findings: Analyzed By CAD. Right breast: There is no suspicious group of microcalcifications or new suspicious mass. Left breast: There is no suspicious group of microcalcifications or new suspicious mass. Overall Assessment: Negative, BI-RAD 1 Management: Screening Mammogram of both breasts in [address] [facility] will attempt to contact patient to return for supplemental views and ultrasound if indicated. Patient should continue monthly self-breast exams. A clinical breast exam by your physician is recommended on an annual basis. This exam should not preclude additional follow-up of suspicious palpable abnormalities. Note on Danielle scores and lifetime risk: 1. A Danielle score greater than 3% is considered moderate risk. If this is the case, consider specialist referral to assess eligibility for a risk reducing agent. 2. If overall lifetime risk for the development of breast cancer is 20% or higher, the patient may qualify for future screening with alternating mammogram and breast MRI. [facility], , 03/27/2024 7:17 AM. Electronically signed and approved by: Andrei Yi DO
== END | disposition home or self-care (01) ==
LOC: RADMAMWWP 15:41
PROVIDERS: ATTEND Family Medicine
DX: Z12.31 Encounter for screening mammogram for malignant neoplasm of breast (principal); R92.323 Mammographic fibroglandular density, bilateral breasts; Z78.0 Asymptomatic menopausal state; Z80.3 Family history of malignant neoplasm of breast
CPT/HCPCS: 77063; 77067